=== PATIENT | male | born 1975 | race Two or more races ===

== ENCOUNTER 2020-01-16 07:59 | Emergency (ER) | payer OTHER ==
[~2020-01-16] VITALS: Ht 165.1 cm; Wt 79.2 kg
--- NOTE | 2020-01-16 08:39 | NUR ---
PT HAS CO OF LLQ ABDOMINAL PAIN. N/V YESTERDAY. DENIES CP OR SOB. NO INJURY OR TRAUMA. PT ON AMOXICILLIN FOR "INFECTION"
--- NOTE | 2020-01-16 08:52 | NUR ---
PT AMBULATED TO BATHROOM FOR UA. LUIS ESTABLISHED FOR CT
[2020-01-16 09:03] LABS: MEAN CORPUSCULAR HEMOGLOBIN 29.4 pg (27.5-34.5); MEAN CORPUSCULAR HGB CONC 34.4 g/dL (33.2-36.2); MEAN CORPUSCULAR VOLUME 85.6 fL (81-97); MEAN PLATELET VOLUME 8.1 fL (7.4-10.4); PLATELET COUNT 129 x10^3/uL (130-400); RED BLOOD COUNT 5.33 x10^6/uL (4.38-5.82)
[2020-01-16 09:12] LABS: ALBUMIN 3.1 g/dL (3.4-5.0); ANION GAP 10 mmol/L (5-15); CALCIUM 8.3 mg/dL (8.5-10.1); CHLORIDE 101 mmol/L (98-107)
[2020-01-16 09:16] LABS: ALANINE AMINOTRANSFERASE 87 U/L (12-78); ALKALINE PHOSPHATASE 159 U/L (45-117); BILIRUBIN,TOTAL 1.9 mg/dL (0.2-1.0); CREATININE 0.97 mg/dL (0.7-1.3); TOTAL PROTEIN 7.7 g/dL (6.4-8.2)
[2020-01-16 09:30] LABS: MICROSCOPIC INDICATED
[2020-01-16 09:39] LABS: BASOPHILS # (AUTO) 0.02 x10^3/uL (0-0.1); BASOPHILS % (AUTO) 0 % (0-1); EOSINOPHILS # (AUTO) 0.02 x10^3/uL (0-0.4); EOSINOPHILS % (AUTO) 0 % (1-7); LYMPHOCYTES # (AUTO) 1.04 x10^3/uL (1-3.4); LYMPHOCYTES % (AUTO) 10 % (22-44); MD SCAN; MONOCYTES # (AUTO) 0.43 x10^3/uL (0.2-0.8); MONOCYTES % (AUTO) 4 % (2-9); NEUTROPHILS # (AUTO) 8.88 x10^3/uL (1.8-6.8); NEUTROPHILS % (AUTO) 85 % (42-75)
[2020-01-16] MEDS ORDERED: OMNIPAQUE 350 MG/ML, 100ML BOTTLE ONE (09:40)
--- NOTE | 2020-01-16 10:30 | NUR ---
PT RESTING, US COMPLETE. VSS.
[2020-01-16 11:44] VITALS: BP 121/79
--- NOTE | 2020-01-16 11:46 | NUR ---
Patient/Caregiver given discharge instructions and they have confirmed that they understand the instructions. Patient ambulatory with steady gait.
== END 2020-01-16 11:53 | disposition home or self-care (01) ==
LOC: ED 08:44
DX: K85.90 Acute pancreatitis without necrosis or infection, unspecified (principal); N30.00 Acute cystitis without hematuria; R74.0 Nonspecific elevation of levels of transaminase and lactic acid dehydrogenase [LDH]; R00.0 Tachycardia, unspecified
CPT/HCPCS: 36415; 74177; 76700; 80053; 81001; 83690; 85025; 87086; 99285; Q9967